=== PATIENT | female | born 1970 | race Two or more races ===

== ENCOUNTER 2016-10-21 01:43 | Emergency (ER) | payer OTHER ==
[~2016-10-21] VITALS: Ht 180.3 cm; Wt 72.6 kg
[2016-10-21 04:24] LABS: Basophils # (auto) 0.1 uL; Basophils % (auto) 0.5 % (0.0-2.0); CONDITION AutoValidated; Eosinophils # (auto) 0.1 uL; Eosinophils % (auto) 1.3 % (0.0-7.0); Hemoglobin 11.4 g/dL (12.2-16.2); Lymphocytes # (auto) 1.7 uL; Lymphocytes % (auto) 16.1 % (10.0-50.0); Mean Corpuscular Hemoglobin 28.7 pg (28.0-32.0); Mean Corpuscular Hgb Conc. 33.6 g/dL (32.0-36.0); Mean Corpuscular Volume 85.2 fL (80.0-100.0); Mean Platelet Volume 8.3 fL (7.4-10.4); Monocytes % (auto) 9.3 % (0.0-12.0); Neutrophils # (auto) 7.6 uL; Neutrophils % (auto) 72.8 % (37.0-80.0); Platelet Count (auto) 421 10^3/uL (140-450); Red Cell Distribution Width 15.4 % (11.6-16.0); White Blood Cell 10.4 10^3/uL (4.4-10.8)
[2016-10-21 04:52] LABS: Albumin 2.5 g/dL (3.4-5.0); Potassium 4.3 mmol/L (3.5-5.1)
[2016-10-21 04:57] LABS: BUN/Creatinine Ratio 16.2; Bilirubin, Total 0.2 mg/dL (0.2-1.0); Total Protein 7.2 g/dL (6.4-8.2)
[2016-10-21] MEDS ORDERED: InsuLIN REG 1unit/0.01ml Soln (100units/ml) IV ONE ×2 (06:15→07:30)
[2016-10-21] MEDS ORDERED: SODIUM CHLORIDE 0.9% 1,000 ML IV ONE (07:24)
[2016-10-21 08:04] LABS: Urine Bilirubin Negative (Negative); Urine Blood TRACE /uL (Negative); Urine Color Yellow (Yellow); Urine Glucose 4+ mg/dL (Normal); Urine Ketone Negative (Negative); Urine Nitrite Negative (Negative); Urine RBC 1 /hpf (0 - 4); Urine Squamous Epithelial Cell FEW /hpf (<5); Urine Urobilinogen Normal (Negative)
[2016-10-21] MEDS ORDERED: ACETAMINOPHEN 500 MG TAB PO ONE (08:15)
[2016-10-21 10:16] VITALS: BP 148/90
== END 2016-10-21 11:37 | disposition home or self-care (01) ==
LOC: ER 01:43
DX: H92.22 Otorrhagia, left ear (principal); E03.9 Hypothyroidism, unspecified; E83.41 Hypermagnesemia; E46 Unspecified protein-calorie malnutrition; E11.21 Type 2 diabetes mellitus with diabetic nephropathy; I12.9 Hypertensive chronic kidney disease with stage 1 through stage 4 chronic kidney disease, or unspecified chronic kidney disease; E11.22 Type 2 diabetes mellitus with diabetic chronic kidney disease; N18.9 Chronic kidney disease, unspecified
CPT/HCPCS: 36415; 70450; 71020; 80053; 81001; 81025; 82962; 83735; 84443; 85025; 94761; 96361; 96374; 99285; J1815; J7030